=== PATIENT | male | born 1955 | race Caucasian/White ===

== ENCOUNTER → 2017-04-01 | Outpatient (CLI) | payer OTHER | END | disposition home or self-care (01) | LOC: SURG 15:28 | PROVIDERS: ATTEND Anesthesiology Pain Medicine | DX: M54.12 Radiculopathy, cervical region (principal); M50.323 Other cervical disc degeneration at C6-C7 level | CPT/HCPCS: 99213 ==

== ENCOUNTER → 2019-01-25 | Outpatient (CLI) | payer OTHER ==
--- NOTE | 2019-01-25 13:04 | RAD ---
VENOUS DUPLEX LEFT UPPER EXTREMITY Left upper extremity venous duplex was performed using B-mode, color-flow, and spectral Doppler. Indication: Left arm swelling, fall, pain Findings: The left internal jugular, subclavian, axillary, brachial, basilic, and cephalic veins as well as the left ulnar and radial veins were assessed for patency. All the vessels were found to be compressible and demonstrated phasic, competent to flow with normal augmentation. Impression: Negative study for acute DVT of the left upper extremity. Electronically signed by: Adi Ott MD (01/25/2019 1:01 PM) [id number]
== END | disposition home or self-care (01) ==
LOC: US 12:05
PROVIDERS: ATTEND Family Medicine
DX: R22.32 Localized swelling, mass and lump, left upper limb (principal); W19.XXXA Unspecified fall, initial encounter; Y93.89 Activity, other specified; Y92.89 Other specified places as the place of occurrence of the external cause; Y99.8 Other external cause status
CPT/HCPCS: 93971

== ENCOUNTER → 2020-07-20 | Outpatient (CLI) | payer OTHER ==
[~2020-07-20] MED LIST: GABA600T7 PO; OMEP20TA63 PO
== END ==
LOC: LAB 10:05
PROVIDERS: ATTEND Nurse Anesthetist, Certified Registered
DX: Z01.812 Encounter for preprocedural laboratory examination (principal); Z20.822 Contact with and (suspected) exposure to COVID-19; Z86.010 Personal history of colon polyps
CPT/HCPCS: U0003

== ENCOUNTER → 2020-07-24 | Day surgery (SDC) | payer OTHER ==
[~2020-07-24] MED LIST changes: +IPRATRPIUM/ALBUTEROL 0.5/2.5MG 3 ML NEBU. NEB PRN; +IV RINGERS SOLUTION,LACTATED 1,000 ML IV SCH; +LIDOCAINE 2% PF 5 ML VIAL. ONE; +MIDAZOLAM HCL PF 2 MG/2 ML VIAL. IV ONE; +ONDANSETRON PF 4 MG/2 ML VIAL. IV PRN; +PROPOFOL 10,000 MCG/ML (20ML) VIAL IV ONE
[2020-07-24 10:44] VITALS: BP 157/75
== END | disposition home or self-care (01) ==
LOC: SURG 09:04
PROVIDERS: ATTEND Internal Medicine Gastroenterology
DX: R19.5 Other fecal abnormalities (principal); K57.30 Diverticulosis of large intestine without perforation or abscess without bleeding; K64.8 Other hemorrhoids; Z80.0 Family history of malignant neoplasm of digestive organs; Z86.010 Personal history of colon polyps; Z83.71 Family history of colonic polyps; Z79.899 Other long term (current) drug therapy; Z72.89 Other problems related to lifestyle
CPT/HCPCS: 45378; J2001; J2704; J7120

== ENCOUNTER 2021-01-28 10:44 | Emergency (ER) | payer MEDICARE, OTHER ==
[~2021-01-28] VITALS: Ht 177.8 cm; Wt 91.6 kg
[~2021-01-28 10:44] MED LIST changes: -IPRATRPIUM/ALBUTEROL 0.5/2.5MG 3 ML NEBU. NEB PRN; -IV RINGERS SOLUTION,LACTATED 1,000 ML IV SCH; -LIDOCAINE 2% PF 5 ML VIAL. ONE; -MIDAZOLAM HCL PF 2 MG/2 ML VIAL. IV ONE; -ONDANSETRON PF 4 MG/2 ML VIAL. IV PRN; -PROPOFOL 10,000 MCG/ML (20ML) VIAL IV ONE
[2021-01-28 11:00] VITALS: BP 137/83
[2021-01-28] MEDS ORDERED: FLUORESCEIN 1MG EYE STRIP. OD ONE (11:30)
[2021-01-28] MEDS ORDERED: TETRACAINE 0.5% OPHTH SOLUTION 4ML BOTTLE. OD ONE (11:30)
[2021-01-28] MEDS ORDERED: ERYT1OIN3 OD (11:35)
--- NOTE | 2021-01-28 11:35 | PHYS DOC ---
Past History Past Surgical History: Other Additional Past Surgical Histo: discectomy, LASIK Alcohol Use: Heavy General Adult EDM: Chief Complaint: EYE PROBLEMS HPI: HPI: Patient is a 65-year-old male being seen in the ER for possible foreign body to right eye. Patient states that he was painting yesterday and he thought he felt some dust fall into his right eye. Patient states that he flushed it with saline and applied eyedrops. He woke up this morning and had developed increased eyelid swelling, crusting/drainage and redness. Patient denies any eye pain, vision changes, nasal congestion or drainage. Review of Systems: Review of Systems: 14 body systems of the review of systems have been reviewed. See HPI for pertinent positive and negative responses, otherwise all other systems are negative, nonpertinent or noncontributory Current Medications: Current Meds: Current Medications Medications (Trade) Dose Ordered Sig/William Start Time Stop Time Status Last Admin Dose Admin Fluorescein Sodium (Ful-Lucy 1mg) 1 strip 1X ONCE 01/28/21 11:30 01/28/21 11:31 Tetracaine HCl (Tetracaine) 1 drop 1X ONCE 01/28/21 11:30 01/28/21 11:31 Allergies: Allergies: Allergies Coded Allergies Type Severity Reaction Last Updated Verified No Known Drug Allergies 07/24/20 No Physical Exam: PE: Constitutional: Well developed, well nourished, no acute distress, non-toxic appearance. [] HENT: Normocephalic, atraumatic, bilateral external ears normal, oropharynx moist, no oral exudates, nose normal. [] Eyes: PERRLA, pupils 4 mm bilaterally, EOMI, right eyelid swelling with redness, redness noted to conjunctiva, tearing Neck: Normal range of motion, no stridor Cardiovascular:Heart rate regular rhythm, no murmur [] Lungs & Thorax: Bilateral breath sounds clear to auscultation [] Abdomen: Bowel sounds normal, soft, no tenderness, no masses, no pulsatile masses. [] Skin: Warm, dry, no erythema, no rash. [] Back: Normal range of motion Extremities: No tenderness, no cyanosis, no clubbing, ROM intact, no edema. [] Neurologic: Alert and oriented X 3, normal motor function, normal sensory function, no focal deficits noted. [] Psychologic: Affect normal, judgement normal, mood normal. [] Current Patient Data: Vital Signs: Vital Signs Date Time Temp Pulse Resp B/P (MAP) Pulse Ox O2 Delivery O2 Flow Rate FiO2 01/28/21 11:00 98.1 77 16 137/83 97 EKG: EKG: [] Radiology/Procedures: Radiology/Procedures: [] Heart Score: C/O Chest Pain: No Risk Factors: Risk Factors: DM, Current or recent (<one month) smoker, HTN, HLP, family history of CAD, obesity. Risk Scores: Score 0 - 3: 2.5% MACE over next 6 weeks - Discharge Home Score 4 - 6: 20.3% MACE over next 6 weeks - Admit for Clinical Observation Score 7 - 10: 72.7% MACE over next 6 weeks - Early Invasive Strategies Course & Med Decision Making: Course & Med Decision Making Pertinent Labs and Imaging studies reviewed. (See chart for details) Patient is a 65-year-old male being seen in the ER for right eyelid swelling and redness with drainage after possible foreign body in eye. Tetracaine and fluorescein used to visualize any possible abrasions or foreign bodies. Small scleral abrasion notedto bottom right portion of eye. Patient to be discharged home with erythromycin ointment and follow-up with an public housing manager. I discussed with patient all findings and diagnostic testing as well as the need to follow-up with PCP for further evaluation and treatment or return to the ER if any new or worsening symptoms. Strict return precautions were also discussed at length. Patient voiced understanding and agreement with the plan. Patient is hemodynamically stable at the time of disposition. Pravin Disclaimer: Pravin Disclaimer: This electronic medical record was generated, in whole or in part, using a voice recognition dictation system. Departure Departure: Impression: Primary Impression: Superficial abrasion of eye region structure Qualified Codes: S00.211A - Abrasion of right eyelid and periocular area, initial encounter Disposition: HOME / SELF CARE / HOMELESS Condition: GOOD Referrals: SUHA FREEMAN MD (PCP) Additional Instructions: You were seen in the ER today for possible foreign body to your right eye. We used medication to visualize any possible foreign bodies or abrasions to your right eye. There was a small abrasion to your eye. You are being discharged home with an antibiotic eye ointment to use. Please use this as directed. Please follow-up with your primary care provider tomorrow regarding your ER visit. You may need to follow-up with ophthalmology. If you do not have an public housing manager you can call with [facility] at [phone] to set up an appointment within the next week. If you develop any worsening of your eye pain, increased swelling, vision changes, headache, high fevers refractory to treatment, intractable nausea or vomiting please return to the ER. EMERGENCY DEPARTMENT GENERAL DISCHARGE INSTRUCTIONS Thank you for coming to [facility] (ED) today and trusting us with you care. We trust that you had a positivie experience in our Emergency Department. If you wish to speak to the department management, you may call the director at [phone]. YOUR FOLLOW UP INSTRUCTIONS ARE FOLLOWS: 1. Do you have a private Doctor? If you do not have a private doctor, please ask for a resource list of physicians or clinics that may be able to assist you with follow up care. 2. The Emergency Physician has interpreted your x-rays. The X-Ray specialist will also review them. If there is a change in the findings, you will be notified in 48 hours when at all possible. 3. A lab test or culture has been done, your results will be reviewed and you will be notified if you need a change in treatment. ADDITIONAL INSTRUCTIONS AND INFORMATION: 1. Your care today has been supervised by a physician who is specially trained in emergency care. Many problems require more than one evaluation for a complete diagnosis and treatment. We recommend that you schedule your follow up appointment as recommended to ensure complete treatment of you illness or injury. If you are unable to obtain follow up care and continue to have a problem, or if your condition worsens, we recommend that you return to the ED. 2. We are not able to safely determine your condition over the phone nor are we able to give sound medical advice over the phone. For these safety reasons, if you call for medical advice we will ask you to come to the ED for further evaluation. 3. If you have any questions regarding these discharge instructions please call the ED at [phone]. SAFETY INFORMATION: In the interest of safety, wellness, and injury prevention; we encourage you to wear your sealbelt, if you smoke; quite smoking, and we encourage family to use a protective helmet for bicycling and other sporting events that present an increased risk for head injury. IF YOUR SYMPTOMS WORSEN OR NEW SYMPTOMS DEVELOP, OR YOU HAVE CONCERNS ABOUT YOUR CONDITION; OR IF YOUR CONDITION WORSENS WHILE YOU ARE WAITING FOR YOUR FOLLOW UP APPOINTMENT; EITHER CONTACT YOUR PRIMARY CARE DOCTOR, THE PHYSICIAN WHOSE NAME AND NUMBER YOU WERE GIVEN, OR RETURN TO THE ED IMMEDIATELY. Scripts Erythromycin Base (Erythromycin) 1 Gm Oint...g. 1 GM OD QID for conjunctivitis for 7 Days, #1 MISC 0 Refills Apply 1/2 inch long eyelid 4 times a day for 7 days. Prov: ASHLEY ARIAS APRN 01/28/21 ASHLEY ARIAS APRN Jan 28, 2021 11:35
== END 2021-01-28 12:18 | disposition home or self-care (01) ==
LOC: ER 10:44
DX: S00.211A Abrasion of right eyelid and periocular area, initial encounter (principal); X58.XXXA Exposure to other specified factors, initial encounter; Y93.89 Activity, other specified; Y92.89 Other specified places as the place of occurrence of the external cause; Y99.8 Other external cause status
CPT/HCPCS: 99283